=== PATIENT | female | born 1965 | race Caucasian/White ===

== ENCOUNTER 2024-09-23 11:37 | Emergency (ER) | payer MEDICAID, OTHER ==
[~2024-09-23] VITALS: Ht 160 cm; Wt 60.9 kg
[2024-09-23 12:50] LABS: BASOPHILS % (AUTO) 0.3 % (0-1); EOSINOPHILS # (AUTO) 0.1 X10'3 (0-0.9); EOSINOPHILS % (AUTO) 1.2 % (0-6); HEMATOCRIT 38.3 % (35.0-45.0); HEMOGLOBIN 12.4 g/dl (12.0-16.0); LYMPHOCYTES # (AUTO) 1.9 X10'3 (1.1-4.8); LYMPHOCYTES % (AUTO) 16.3 % (21-51); MEAN CORPUSCULAR HEMOGLOBIN 28.4 PG (27.0-31.0); MEAN CORPUSCULAR HGB CONC 32.3 g/dL (33.0-36.5); MEAN CORPUSCULAR VOLUME 87.8 FL (78-98); MONOCYTES # (AUTO) 0.9 X10'3 (0-0.9); MONOCYTES % (AUTO) 7.8 % (2-12); NEUTROPHILS # (AUTO) 8.8 X10'3 (1.8-7.7); NEUTROPHILS % (AUTO) 74.4 % (42-75); PLATELET COUNT 318 X10'3 (140-440); RED BLOOD COUNT 4.36 X10'6 (4.20-5.60); RED CELL DISTRIBUTION WIDTH 15.7 % (11.5-14.5); WHITE BLOOD COUNT 11.9 X10'3 (4.5-11.0)
[2024-09-23 13:02] LABS: ALANINE AMINOTRANSFERASE 19 U/L (12-78); ALBUMIN 3.4 G/DL (3.4-5.0); ALBUMIN/GLOBULIN RATIO 0.9 (1.1-1.5); ALKALINE PHOSPHATASE 87 IU/L (46-116); ANION GAP 8 (8-16); ASPARTATE AMINO TRANSFERASE 15 U/L (10-37); BILIRUBIN,TOTAL 1.4 MG/DL (0.1-1.0); BLOOD UREA NITROGEN 27 MG/DL (7-18); BUN/CREATININE RATIO 34.6 (10.0-20.0); CHLORIDE 107 MMOL/L (99-107); CREATININE 0.78 MG/DL (0.40-0.90); GLUCOSE 99 MG/DL (70-104); POTASSIUM 3.4 MMOL/L (3.5-5.1); SODIUM 145 MMOL/L (135-145); TOTAL CARBON DIOXIDE 29.8 MMOL/L (24-32); TOTAL PROTEIN 7.4 G/DL (6.4-8.2); eCRCL 63 ML/MIN; eGFR 75 ML/MIN
[2024-09-23 13:11] LABS: PRO BRAIN NATRIURETIC PEPTIDE 1518 PG/ML (0-125)
[2024-09-23] MEDS: normal saline 1000ML IV soln IVB ONE (13:15)
[2024-09-23 13:57] LABS: D-DIMER 1.15 MG/L FEU (0-0.50)
[2024-09-23] MEDS: gentamicin 0.3% ophthalmic drops 5ML EACHEYE ONE (14:14)
[2024-09-23 14:16] VITALS: BP 129/71; PULSE 54; RESP 14; TEMP 98.1; O2SAT 99
[2024-09-23] MEDS ORDERED: iohexol 350MG/ML 100ml bottle IV ONE (14:20)
[2024-09-23] MEDS: potassium Cl 20 mEq SR tablet PO STA (15:13)
== END 2024-09-23 15:52 | disposition home or self-care (01) ==
LOC: ER 11:38
DX: R07.9 Chest pain, unspecified (principal); E86.0 Dehydration; H10.9 Unspecified conjunctivitis; E87.6 Hypokalemia; F15.90 Other stimulant use, unspecified, uncomplicated
CPT/HCPCS: 36415; 71045; 71275; 80053; 83880; 84484; 85025; 85379; 93005; 96360; 99285; J7030; Q9967

== ENCOUNTER 2024-12-16 19:59 | Emergency (ER) | payer MEDICAID ==
[~2024-12-16] VITALS: Ht 160 cm; Wt 67.2 kg
[2024-12-16 21:52] LABS: BASOPHILS % (AUTO) 0.4 % (0-1); EOSINOPHILS # (AUTO) 0.1 X10'3 (0-0.9); EOSINOPHILS % (AUTO) 1.9 % (0-6); HEMATOCRIT 37.5 % (35.0-45.0); HEMOGLOBIN 12.4 g/dl (12.0-16.0); LYMPHOCYTES # (AUTO) 1.3 X10'3 (1.1-4.8); LYMPHOCYTES % (AUTO) 16.2 % (21-51); MEAN CORPUSCULAR HEMOGLOBIN 28.9 PG (27.0-31.0); MEAN CORPUSCULAR HGB CONC 33.2 g/dL (33.0-36.5); MEAN CORPUSCULAR VOLUME 87.2 FL (78-98); MEAN PLATELET VOLUME 8.3 FL (7.4-10.4); MONOCYTES # (AUTO) 0.5 X10'3 (0-0.9); MONOCYTES % (AUTO) 6.4 % (2-12); NEUTROPHILS # (AUTO) 5.8 X10'3 (1.8-7.7); NEUTROPHILS % (AUTO) 75.1 % (42-75); PLATELET COUNT 298 X10'3 (140-440); RED CELL DISTRIBUTION WIDTH 14.1 % (11.5-14.5); WHITE BLOOD COUNT 7.8 X10'3 (4.5-11.0)
[2024-12-16 21:55] LABS: APTT 30 SECONDS (22-32); PROTHROMBIN TIME 10.6 SECONDS (9.0-12.0)
[2024-12-16 21:56] LABS: ALANINE AMINOTRANSFERASE 16 U/L (12-78); ALBUMIN 3.5 G/DL (3.4-5.0); ALBUMIN/GLOBULIN RATIO 0.8 (1.1-1.5); ALKALINE PHOSPHATASE 98 IU/L (46-116); ANION GAP 8 (8-16); ASPARTATE AMINO TRANSFERASE 19 U/L (10-37); BILIRUBIN,TOTAL 1.7 MG/DL (0.1-1.0); BLOOD UREA NITROGEN 29 MG/DL (7-18); BUN/CREATININE RATIO 31.5 (10.0-20.0); CALCIUM 8.9 MG/DL (8.5-10.1); CHLORIDE 105 MMOL/L (99-107); CREATININE 0.92 MG/DL (0.40-0.90); GLUCOSE 90 MG/DL (70-104); POTASSIUM 3.6 MMOL/L (3.5-5.1); SODIUM 141 MMOL/L (135-145); TOTAL CARBON DIOXIDE 27.6 MMOL/L (24-32); TOTAL PROTEIN 7.8 G/DL (6.4-8.2); eCRCL 53 ML/MIN; eGFR 62 ML/MIN
--- NOTE | 2024-12-16 22:29 | Physician Documentation ---
History of Present Illness General Chief Complaint: Leg Pain Stated Complaint: R LEG PAIN Time Seen by MD: 20:54 Primary Medical Doctor: [facility], just establishing new care provider Mode of Arrival: POV, Dropped Off History of Present Illness Initial Comments 59-year-old female presents to the emergency department with complaint of bruising and some mild fatigue. Reports that she had femoral stenting in July since that time has had some fatigue and she is due for an additional stent. She is status post [place]. Denies chest pain or shortness of breath. No nausea vomiting or diarrhea or bloody or mellitus stool. Reports she has been taking her medications as prescribed. He is concerned because she has scattered bruises. She does take aspirin. Medication Reconciliation Allergies: Coded Allergies: codeine (Verified Allergy, Unknown, 11/13/14) Past Medical History Past Medical History: No Pertinent History Past Surgical History: no surgical history Alcohol Use: Occasionally Drug Use: methamphetamine Lives In: Home Physical Exam Physical Exam Vital Signs: Temperature: 98.1, Source: Oral, Heart Rate: 62, Respiratory Rate: 16, BP: 142/70, Pulse Oximetry: 98, Weight: 67.150 Oxygen Flow Rate: 0 Progress Results/Orders Results/Orders Orders - INES JIMENEZ PAC Chest,Single View (12/16/24 ) Completed Orders - INES JIMENEZ PAC Cbc/Diff (12/16/24 21:15) CMP (12/16/24 21:15) Pt Inr (12/16/24 21:15) PTT (12/16/24 21:15) Vital Signs 12/16/24 12/16/24 12/16/24 20:01 22:09 22:15 Temp 98.1 98.1 Pulse 61 62 Resp 18 16 16 B/P (MAP) 151/62 142/70 (94) Pulse Ox 98 98 O2 Flow Rate 0 0 Laboratory Tests Test 12/16/24 21:33 White Blood Count 7.8 Red Blood Count 4.30 Hemoglobin 12.4 Hematocrit 37.5 Mean Corpuscular Volume 87.2 Mean Corpuscular Hemoglobin 28.9 Mean Corpuscular Hemoglobin Concent 33.2 Red Cell Distribution Width 14.1 Platelet Count 298 Mean Platelet Volume 8.3 Neutrophils (%) (Auto) 75.1 H Lymphocytes (%) (Auto) 16.2 L Monocytes (%) (Auto) 6.4 Eosinophils (%) (Auto) 1.9 Basophils (%) (Auto) 0.4 Neutrophils # (Auto) 5.8 Lymphocytes # (Auto) 1.3 Monocytes # (Auto) 0.5 Eosinophils # (Auto) 0.1 Basophils # (Auto) 0.0 CBC Comment Prothrombin Time 10.6 INR International Normalized Ratio 1.0 Activated Partial Thromboplast Time 30 Coagulation Comments Sodium Level 141 Potassium Level 3.6 Chloride Level 105 Carbon Dioxide Level 27.6 Anion Gap 8 Blood Urea Nitrogen 29 H Creatinine 0.92 H Estimated GFR/1.73 m2 62 BUN/Creatinine Ratio 31.5 H Glucose Level 90 Calcium Level 8.9 Total Bilirubin 1.7 H Aspartate Amino Transf (AST/SGOT) 19 Alanine Aminotransferase (ALT/SGPT) 16 Alkaline Phosphatase 98 Total Protein 7.8 Albumin 3.5 Globulin 4.3 Albumin/Globulin Ratio 0.8 L Chemistry Comments Medical Decision Making Differential Diagnosis 59-year-old female who presents emergency department with concerns of persistent fatigue for four months and unexplained bruising. Labs were all reassuring today for a no anemia, platelets are normal INR PTT all within normal limits. No electrolyte abnormalities. Chest x-ray imaging and reassuring for no obvious him for traits effusions with normal heart size. Patient reassured to follow up with the primary care for additional workup and evaluation. Did discuss that likely a fatigue is secondary to needing additional stenting. Differential was or many with the patient's complex medical history he had nothing obviously evident and laboratory findings tonight. Can not exclude hematological versus autoimmune versus cardiac abnormalities. She just started seeing stable condition normotensive no acute distress. Departure Disposition: HOME / SELF CARE / HOMELESS Impression: Primary Impression: Fatigue Qualified Codes: R53.83 - Other fatigue Additional Impression: Superficial bruising Condition: Stable Discharge Instructions: Fatigue Additional Instructions: Today the emergency department had labs obtained which she reassuring for no obvious anemia. Blood counts are within normal limits in your clotting factors also reassuring. Make follow up appointment with primary care physician for additional workup and management. Return to the emergency department as needed. Thank you for visiting [facility] Referrals: NO PRIMARY CARE PROVIDER (PCP) Education Educated: Patient Educated regarding: diagnosis, treatment Signature Scribe Signature: . Attestation: . INES JIMENEZ [facility] Dec 16, 2024 22:29
[2024-12-16 23:24] VITALS: BP 142/70; PULSE 59; RESP 14; TEMP 98.1; O2SAT 98
--- NOTE | 2024-12-16 23:25 | RADIOLOGY REPORT ---
CHEST RADIOGRAPH Indication: cough and fatigue Technique: Single frontal view of the chest was obtained COMPARISON: DI CHEST,SINGLE VIEW on DOS: 09/23/24 FINDINGS: Lines and Tubes: None Lungs: Clear Pleura: No effusion. No pneumothorax. Cardiomediastinal contours: Unremarkable IMPRESSION: No abnormality demonstrated.
== END 2024-12-16 23:22 | disposition home or self-care (01) ==
LOC: ER 19:59
DX: S80.11XA Contusion of right lower leg, initial encounter (principal); R53.83 Other fatigue; X58.XXXA Exposure to other specified factors, initial encounter; Y93.89 Activity, other specified; Y92.89 Other specified places as the place of occurrence of the external cause; Y99.8 Other external cause status
CPT/HCPCS: 36415; 71045; 80053; 85025; 85610; 85730; 99284